=== PATIENT | female | born 1965 | race Caucasian/White ===

== ENCOUNTER 2016-07-14 07:58 | Day surgery (SDC) | payer OTHER ==
[~2016-07-14 07:58] MED LIST: BUPIVACAINE 0.5% 30 ML SDV ONE
[2016-07-14] MEDS ORDERED: ceFAZolin 2 GM/DEXTROSE 100 ML IV ONE (09:00)
[2016-07-14] MEDS ORDERED: ACETAMINOPHEN 500 MG TAB PO ONE (09:00)
[2016-07-14] MEDS ORDERED: MIDAZOLAM 2 MG/2 ML VIAL ONE ×2 (09:16→09:25)
[2016-07-14] MEDS ORDERED: fentaNYL 100 MCG/2 ML INJ ONE (09:22)
[2016-07-14] MEDS ORDERED: PROPOFOL 200 MG/20 ML VIAL ONE ×2 (09:22→09:23)
[2016-07-14] MEDS ORDERED: ROPIVACAINE HCL 150 MG/30 ML INJ ONE (09:23)
[2016-07-14] MEDS ORDERED: METOCLOPRAMIDE 10 MG/2 ML VIAL ONE (09:24)
[2016-07-14] MEDS ORDERED: GLYCOPYRROLATE 0.2 MG/1 ML VIAL ONE (09:24)
[2016-07-14] MEDS ORDERED: DEXAMETHASONE 4 MG/ML VIAL ONE (10:03)
[2016-07-14] MEDS ORDERED: ONDANSETRON 4 MG/2 ML VIAL ONE (10:03)
[2016-07-14] MEDS ORDERED: PHENYLEPHRINE HCL 100 MCG/ML SYR ONE (10:13)
[2016-07-14] MEDS ORDERED: THROMBIN (RECOMBINANT) 5,000 UNIT VIAL TP ONE (10:19)
[2016-07-14] MEDS ORDERED: CALCIUM CHLORIDE 1 GM/10 ML INJ ONE (10:19)
[2016-07-14] MEDS ORDERED: KETOROLAC 30 MG/1 ML SDV ONE (10:53)
--- NOTE | 2016-07-14 13:43 | GOP ---
[f rep st] OPERATIVE REPORT DATE OF OPERATION: 07/14/2016 SURGEON: Luzma Ball MD ENTRY LEVEL MECHANICAL ENGINEER: Reynold Garcia CSA, whose presence was medically necessary. ANESTHESIA: By LMA plus scalene block per surgeon's request. PREOPERATIVE DIAGNOSIS: Left shoulder impingement syndrome with labral tear. POSTOPERATIVE DIAGNOSIS: Left shoulder impingement syndrome with labral tear. PROCEDURE PERFORMED: Left shoulder arthroscopy with debridement of rotator cuff, labrum, subacromial bursa with subacromial decompression and distal clavicle excision. FINDINGS: INDICATIONS: This is a 51-year-old female with progressive pain into the left shoulder despite multi ple conservative measures. She had previously undergone a right shoulder surgery for similar issues, and had a good result. She wishes to have surgery to resolve the problem. DESCRIPTION OF PROCEDURE: The patient was brought to the operating room after the left side had been identified as the correct side by the patient, nurse and physician. Once in the operating room, she was given a scalene block on the left side, then placed under general anesthesia using an LMA. Once asleep, the left upper extremity was sterilely prepped and draped in the usual fashion using GSI solu tion. Once prepped and draped, an incision was made off the posterolateral corner of the acromion with the camera introduced without difficulty. Inspection of the joint revealed tearing of the superior and an terior portions of the labrum along with some fibrous tissue associated with the biceps tendon. There fore, using an in-to-out technique, an anterior portal was made in the superolateral coracoid process with a 6 x 75 mm threaded cannula placed through the anterior portal, and a 3.5 mm smooth shaver use d to debride and debulk the tearing of the superior and anterior portions of the labrum along with fi brous tissue particularly associated with the subscapularis and biceps tendon. Once completed, all in struments were removed from the glenohumeral joint and using the same portal sites, were reintroduced in the subacromial space. A 3rd incision was made 3 cm lateral to the acromial process in line with the posterior cortex of the clavicle with the camera switched to the lateral portal. Alternating an a rthroscopic Bovie tip and a shaver were used to remove the abundant amount of soft tissue within the subacromial space and the undersurface of the acromion. She was noted to have a large anterior acromi al curve and used the acromionizer bur from the posterior portal and used to remove that curve until achieving a flat ceiling. Attention was then turned to the distal clavicle. It was noted to have a sp ur at its posterior inferior portion, and this was also debrided using a shaver and bur until achievi ng enough bone removal that it was no longer rubbing up against the rotator cuff tendon. Once finishe d, inspection was done of the rotator cuff, noted to have some fibrillation but no full-thickness tea rs. Therefore, all instruments were removed from the subacromial space with 30 cc of Marcaine infused in the subacromial space. The 3 portal sites were closed using 3-0 nylon suture in a [id number] type stitch. The wounds we re dressed with Xeroform, 4 x 4, and Tegaderm. She was completely undraped in the operating room, and had a sling placed on the left upper extremity. She was then woken up, extubated, transferred onto a stretcher, and sent to the recovery room in good condition. /[id number]/MODL
== END 2016-07-14 13:15 | disposition home or self-care (01) ==
LOC: FSGY 07:58
PROVIDERS: ATTEND Orthopaedic Surgery
PROC: 0MB24ZZ Excision of Left Shoulder Bursa and Ligament, Percutaneous Endoscopic Approach (ICD-10-PCS; principal; 2016-07-14 09:45)
PROC: 0RBK4ZZ Excision of Left Shoulder Joint, Percutaneous Endoscopic Approach (ICD-10-PCS; principal; 2016-07-14 09:45)
PROC: 0PBB4ZZ Excision of Left Clavicle, Percutaneous Endoscopic Approach (ICD-10-PCS; principal; 2016-07-14 09:45)
DX: M75.42 Impingement syndrome of left shoulder (principal); M75.112 Incomplete rotator cuff tear or rupture of left shoulder, not specified as traumatic
CPT/HCPCS: J0171; J0690; J1100; J1885; J2250; J2370; J2405; J2704; J2765; J2795; J3010

== ENCOUNTER → 2016-12-11 | Outpatient (CLI) | payer OTHER | LOC: FIMAGING 07:53 | PROVIDERS: ATTEND Family Medicine | DX: Z12.31 Encounter for screening mammogram for malignant neoplasm of breast (principal) | CPT/HCPCS: G0202 ==